=== PATIENT | male | born 1960 | race African-American/Black ===

== ENCOUNTER 2018-03-22 22:18 | Emergency (ER) | payer MEDICAID ==
[~2018-03-22] VITALS: Ht 177.8 cm; Wt 68.0 kg
[2018-03-22 22:26] VITALS: BP 117/73
[2018-03-22] MEDS ORDERED: PENICILLIN V P500 MG ORAL (22:43)
[2018-03-22] MEDS ORDERED: IBUPROFEN600 MG ORAL (22:43)
[2018-03-22 23:05] VITALS: BP 117/73
--- NOTE | 2018-03-23 00:55 | Emergency Room Report ---
History of Present Illness General Chief Complaint: Toothache Source: Patient Present Illness HPI Patient is a 57-year-old male presented after increased left upper dental discomfort. Patient gradual onset of symptoms. Patient reports having some injury to the tooth which he stated occurred 6 months ago. This reportedly had become increasingly painful. He denies any fever. He denies any facial swelling. Patient had not seen a dentist. Allergies: Coded Allergies: No Known Allergies (Unverified , 03/22/18) Patient History Past Medical History: see triage record Reviewed Nursing Documentation: PMH: Agreed; PSxH: Agreed Nursing Documentation-PMH Past Medical History: No Stated History Review of Systems All Other Systems: negative except mentioned in HPI Physical Exam Vital Signs Date Time Temp Pulse Resp B/P (MAP) Pulse Ox O2 Delivery O2 Flow Rate FiO2 03/22/18 22:23 98.2 89 16 117/73 94 Room Air 98.2 General Appearance: well appearing, no apparent distress, alert, GCS 15 Head: normocephalic, atraumatic ENT: hearing grossly normal, normal voice, other - multiple cracked teeth, no swelling noted Neck: full range of motion, supple Respiratory: lungs clear, no respiratory distress, speaking full sentences Cardiovascular #1: normal peripheral pulses, regular rate, rhythm, no edema, no gallop Gastrointestinal: normal inspection, soft Musculoskeletal: no calf tenderness Neurologic: normal inspection, oriented x3, responsive, program scheduler III-XII nml as tested, motor strength/tone normal, normal gait Psychiatric: mood/affect normal Skin: no rash Medical Decision Making Diagnostic Impression: Primary Impression: Toothache ER Course Patient presented for dental pain. Differential diagnosis included but was not limited to trigeminal neuralgia, dental abscess, dry socket, osteomyelitis, nerve injury. The patient was noted to have a benign exam. The patient was noted to have multiple areas of dental issues. The patient appears to have multiple cracked teeth which likely will require removal by dentist or oral surgeon although there is no definite infection patient be prescribed penicillin. Patient was advised follow-up with his dentist Patient is advised to return if any worsening condition or if any changes in status that are concerning. Last Vital Signs Date Time Temp Pulse Resp B/P (MAP) Pulse Ox O2 Delivery O2 Flow Rate FiO2 03/22/18 23:05 98.2 86 16 117/73 94 Room Air 98.2 Status: improved Disposition: HOME, SELF-CARE Condition: Stable Scripts Ibuprofen* (MOTRIN*) 600 Mg Tablet 600 MG ORAL Q8H PRN for For Pain, #30 TAB 0 Refills Prov: Manuelito Caicedo 03/22/18 Penicillin V Potassium* (PENVK*) 500 Mg Tablet 500 MG ORAL TWICE A DAY, #28 TAB Prov: Manuelito Caicedo 03/22/18 Referrals: NON PHYSICIAN (PCP) Patient Instructions: Dental Pain Manuelito Caicedo March 23, 2018 00:55
== END 2018-03-23 00:58 | disposition home or self-care (01) ==
LOC: EMR 22:45
DX: K08.89 Other specified disorders of teeth and supporting structures (principal)
CPT/HCPCS: 99284